=== PATIENT | female | born 1955 | race Caucasian/White ===

== ENCOUNTER 2022-02-17 08:31 | Day surgery (SDC) | payer MEDICARE, MEDICAID ==
[~2022-02-17] VITALS: Ht 182.9 cm; Wt 157.5 kg
[2022-02-17] VITALS (9 sets, daily range): BP systolic 129–172; BP diastolic 48–81
[2022-02-17] MEDS ORDERED: normal saline 1000ml 1,000 ML IV SCH (09:20)
[2022-02-17] MEDS ORDERED: ceFAZolin inj. 3,000 MG in dextrose 5%-water 100 ML IV ONE (09:20)
[2022-02-17] MEDS ORDERED: HYDR-3972 PO (09:26)
[2022-02-17] MEDS ORDERED: ALBU18HF2 (09:26)
[2022-02-17] MEDS ORDERED: DIPH-522 PO (09:26)
[2022-02-17] MEDS ORDERED: IRON PO (09:33)
[2022-02-17] MEDS ORDERED: VITAMIN D3 PO (09:33)
[2022-02-17] MEDS ORDERED: ETOD-189 PO (09:33)
[2022-02-17] MEDS ORDERED: RALO60TA55 PO (09:33)
[2022-02-17] MEDS ORDERED: ESOM40CA PO (09:33)
[2022-02-17] MEDS ORDERED: [UNRECOGNIZED DRUG - OTHER] PO (09:33)
[2022-02-17] MEDS ORDERED: CYCL-1 PO (09:33)
[2022-02-17] MEDS ORDERED: MELO-102 PO (09:34)
[2022-02-17] MEDS ORDERED: MELA3TAB39 PO (09:39)
[2022-02-17] MEDS ORDERED: ROPI1TAB6 PO (09:39)
[2022-02-17] MEDS ORDERED: FLEC100T35 PO (09:40)
[2022-02-17 09:48] LABS: BASOPHILS % (AUTO) 0.9 % (0-1); EOSINOPHILS # (AUTO) 0.1 X10'3 (0-0.9); EOSINOPHILS % (AUTO) 1.2 % (0-6); HEMATOCRIT 47.5 % (35.0-45.0); HEMOGLOBIN 15.4 g/dl (12.0-16.0); LYMPHOCYTES # (AUTO) 1.1 X10'3 (1.1-4.8); LYMPHOCYTES % (AUTO) 19.6 % (21-51); MEAN CORPUSCULAR HEMOGLOBIN 32.4 PG (27.0-31.0); MEAN CORPUSCULAR HGB CONC 32.5 g/dL (33.0-36.5); MEAN CORPUSCULAR VOLUME 99.8 FL (78-98); MEAN PLATELET VOLUME 10.3 FL (7.4-10.4); MONOCYTES # (AUTO) 0.3 X10'3 (0-0.9); NEUTROPHILS % (AUTO) 72.3 % (42-75); PLATELET COUNT 258 X10'3 (140-440); RED BLOOD COUNT 4.75 X10'6 (4.20-5.60); RED CELL DISTRIBUTION WIDTH 16.1 % (11.5-14.5); WHITE BLOOD COUNT 5.6 X10'3 (4.5-11.0)
[2022-02-17] MEDS ORDERED: LEVO75TA56 PO (09:50)
[2022-02-17] MEDS ORDERED: GLUC1CAP36 PO (09:50)
[2022-02-17] MEDS ORDERED: POTA8TAB69 PO (09:50)
[2022-02-17] MEDS ORDERED: LIOT5TAB10 PO (09:50)
[2022-02-17] MEDS ORDERED: LISI10TA27 PO (09:50)
[2022-02-17 10:03] LABS: ALBUMIN 3.9 G/DL (3.4-5.0); ANION GAP 9 (8-16); BLOOD UREA NITROGEN 11 MG/DL (7-18); BUN/CREATININE RATIO 14.1 (6.6-38.0); CHLORIDE 106 MMOL/L (99-107); CREATININE 0.78 MG/DL (0.40-0.90); GLUCOSE 93 MG/DL (70-104); MAGNESIUM 1.9 MG/DL (1.5-2.4); POTASSIUM 3.8 MMOL/L (3.5-5.1); SODIUM 143 MMOL/L (135-145); TOTAL CARBON DIOXIDE 28.1 MMOL/L (24-32); eGFR 74 ML/MIN
--- NOTE | 2022-02-17 11:15 | NUR ---
pt c/o upper epigastric discomfort and itching on her head. per Dr. Harlan matthew Benadryl 50mg IV. Addendum: 02/17/22 at 1900 by Mary Evans RN Vanco infusion stopped. pt states symptoms are subsiding after vanco being stopped.
[2022-02-17] MEDS ORDERED: diphenhydrAMINE 50 mg/ml inj IV ONE (11:40)
[2022-02-17] MEDS ORDERED: LIDOCAINE 2% w/EPI 1:100:000 30mL injection MDV**cath lab 1 only ONE (12:34)
[2022-02-17] MEDS ORDERED: fentaNYL/PF 50MCG/1 ML 2ML syringe ONE (12:34)
[2022-02-17] MEDS ORDERED: midazolam 1 mg/ML 2ml injection ONE ×7 (12:34→14:00)
[2022-02-17] MEDS ORDERED: vancomycin 1,000mg inj ONE (12:34)
[2022-02-17] MEDS ORDERED: ceFAZolin 1000mg inj ONE (12:38)
[2022-02-17] MEDS ORDERED: hydrALAZINE 20mg/ml inj. IV ONE (13:47)
[2022-02-17] MEDS ORDERED: HYDROcodone/acetaminophen 5mg/325mg tablet PO PRN (14:35)
[2022-02-17] MEDS ORDERED: HYDROcodone/acetaminophen 10/325mg tab PO PRN (14:35)
== END 2022-02-17 18:00 | disposition home or self-care (01) ==
LOC: SSTAY O 08:31
PROVIDERS: ATTEND Internal Medicine Cardiovascular Disease
DX: Z45.010 Encounter for checking and testing of cardiac pacemaker pulse generator [battery] (principal); I47.1 Supraventricular tachycardia; I10 Essential (primary) hypertension; E66.01 Morbid (severe) obesity due to excess calories; Z68.38 Body mass index [BMI] 38.0-38.9, adult; K21.9 Gastro-esophageal reflux disease without esophagitis; M06.9 Rheumatoid arthritis, unspecified; M19.90 Unspecified osteoarthritis, unspecified site; Z90.49 Acquired absence of other specified parts of digestive tract; Z98.890 Other specified postprocedural states; Z88.8 Allergy status to other drugs, medicaments and biological substances; Z79.899 Other long term (current) drug therapy
CPT/HCPCS: 33227; 36415; 80048; 83735; 85025; 85610; 92960; 93005; 99152; 99153; J0360; J0690; J1200; J2250; J3010; J3370; J3490; J7030; J7060; A4620; A6258